=== PATIENT | female | born 1970 | race Asian ===

== ENCOUNTER 2020-04-10 18:44 | Emergency (ER) | payer OTHER ==
[~2020-04-10] VITALS: Ht 162.6 cm; Wt 53.5 kg
[2020-04-10 18:52] VITALS: BP 167/109
--- NOTE | 2020-04-10 18:58 | NUR ---
NADEGE RHODES AT BEDSIDE FOR EVAL.
[2020-04-10] MEDS ORDERED: diphenhydrAMINE HCL 50 MG CAPSULE ONE (19:05)
[2020-04-10] MEDS ORDERED: FAMOTIDINE (20 MG) 20 MG TABLET ONE (19:06)
[2020-04-10] MEDS ORDERED: predniSONE 20 MG TABLET ONE (19:06)
--- NOTE | 2020-04-10 19:24 | NUR ---
Patient discharged to home in stable condition. Written and verbal after care instructions given. Patient verbalizes understanding of instruction.
[2020-04-10] MEDS ORDERED: predniSONE 10 MG TABLET PO ONE (19:30)
[2020-04-10] MEDS ORDERED: FAMOTIDINE (20 MG) 20 MG TABLET PO ONE (19:30)
[2020-04-10] MEDS ORDERED: diphenhydrAMINE HCL 50 MG CAPSULE PO ONE (19:30)
== END 2020-04-10 19:25 | disposition home or self-care (01) ==
LOC: ER 18:46
DX: T78.1XXA Other adverse food reactions, not elsewhere classified, initial encounter (principal); I10 Essential (primary) hypertension; Z98.890 Other specified postprocedural states; X58.XXXA Exposure to other specified factors, initial encounter
CPT/HCPCS: 99284; J7512; Q0163

== ENCOUNTER 2022-01-04 21:24 | Emergency (ER) | payer OTHER ==
[~2022-01-04] VITALS: Ht 162.6 cm; Wt 54.4 kg
--- NOTE | 2022-01-04 22:45 | NUR ---
PATIENT BIBSELF C/O FEVER, COUGH AND SORE THROAT X 3 DAYS. PATIENT IS A/O X 4, RR EVEN AND UNLABORED AND SOB NOTED. PATIENT VSS. PATIENT TAKEN TO ER BED 8. PATIENT CONNECTED TO [facility] MONITOR AND POX. WILL CONTINUE TO MONITOR.
--- NOTE | 2022-01-05 00:19 | NUR ---
COVID AND FLU SWAB COLLECTED SENT TO LAB
[2022-01-05 01:56] VITALS: BP 124/66
[2022-01-05] MEDS ORDERED: BENZ-13 PO (03:42)
--- NOTE | 2022-01-05 03:45 | NUR ---
Patient discharged to home in stable condition. Written and verbal after care instructions given. Patient verbalizes understanding of instruction.
== END 2022-01-05 03:45 | disposition home or self-care (01) ==
LOC: ER 21:30
DX: B34.9 Viral infection, unspecified (principal); Z20.822 Contact with and (suspected) exposure to COVID-19; I10 Essential (primary) hypertension
CPT/HCPCS: 99284; 71045; 87426; 87804; C9803

== ENCOUNTER 2023-07-16 20:06 | Emergency (ER) | payer OTHER ==
[~2023-07-16] VITALS: Ht 162.6 cm; Wt 56.7 kg
[~2023-07-16 20:06] MED LIST: BENZ-13 PO
[2023-07-16 20:46] VITALS: TEMP 97.7
[2023-07-16] MEDS: IV NS 0.9% 1,000 ML BAG IV ONE (21:24)
[2023-07-16 21:26] LABS: BASOPHILS # (AUTO) 0.1 K/uL (0.0-0.2); BASOPHILS % (AUTO) 1.8 % (0.0-2.0); EOSINOPHILS # (AUTO) 0.1 K/uL (0.0-0.7); EOSINOPHILS % (AUTO) 2.1 % (0.0-6.0); HEMATOCRIT 35 % (33-45); HEMOGLOBIN 11.9 g/dL (11.5-14.8); LYMPHOCYTES # (AUTO) 1.7 K/uL (0.8-4.8); LYMPHOCYTES % (AUTO) 23.7 % (20.0-44.0); MEAN CORPUSCULAR HEMOGLOBIN 30 PG (26.0-33.0); MEAN CORPUSCULAR HGB CONC 34 g/dl (31.0-36.0); MEAN CORPUSCULAR VOLUME 89 fL (82-100); MONOCYTES # (AUTO) 0.4 K/uL (0.1-1.30); MONOCYTES % (AUTO) 5.9 % (2.0-12.0); NEUTROPHILS # (AUTO) 4.7 K/uL (1.8-8.9); NEUTROPHILS % (AUTO) 66.5 % (43.0-81.0); PLATELET COUNT (AUTO) 446 K/uL (150-450); RED BLOOD CELL COUNT(AUTO) 3.98 MIL/uL (4.0-5.2); RED CELL DISTRIBUTION WIDTH 11.8 % (11.5-15.0)
[2023-07-16 21:30] LABS: APPEARANCE,URINE Clear (CLEAR); BILIRUBIN,URINE Negative (NEGATIVE); BLOOD, URINE Moderate Ery/uL (NEGATIVE); COLOR,URINE LIGHT YELLOW (YELLOW); KETONES,URINE Negative (NEGATIVE); LEUKOCYTE ESTERASE ,URINE Negative (NEGATIVE); NITRITE, URINE Negative (NEGATIVE); PROTEIN,URINE Negative (NEGATIVE); UGLUCOSE Negative (NEGATIVE); UROBILINOGEN,URINE 0.2 EU/dL (0.2)
[2023-07-16 21:41] LABS: INR 0.99 (0.91-1.10); PARTIAL THROMBOPLASTIN TIME 26.7 SEC (24.3-34.3); PROTHROMBIN TIME 10.2 SECS (9.2-11.1)
[2023-07-16 21:47] LABS: ALBUMIN 3.8 g/dL (3.4-5.0); BILIRUBIN,DIRECT 0.1 mg/dL (0.0-0.2); BILIRUBIN,TOTAL 0.4 mg/dL (0.2-1.0); CALCIUM, SERUM 8.2 mg/dL (8.5-10.1); CREATININE 0.8 mg/dL (0.6-1.3); POTASSIUM 3.4 mmol/L (3.5-5.1); TOTAL PROTEIN, SERUM 7.7 g/dL (6.4-8.2)
[2023-07-16 21:54] LABS: WBC,URINE 0-2 /HPF (0-3)
[2023-07-16 21:55] LABS: ADD URINE CULTURE NO; BACTERIA,URINE Rare /HPF (None Seen); SQUAMOUS EPITHELIAL CELL,UR Rare /HPF (None Seen)
[2023-07-16 22:01] LABS: PREGNANCY TEST URINE QUAL NEGATIVE (NEGATIVE)
[2023-07-17 00:26] VITALS: BP 148/89; O2SAT 99
== END 2023-07-17 00:27 | disposition home or self-care (01) ==
LOC: ER 20:09
DX: N93.9 Abnormal uterine and vaginal bleeding, unspecified (principal); R19.00 Intra-abdominal and pelvic swelling, mass and lump, unspecified site; R22.1 Localized swelling, mass and lump, neck; R10.2 Pelvic and perineal pain; I10 Essential (primary) hypertension; Z88.8 Allergy status to other drugs, medicaments and biological substances
CPT/HCPCS: 99284; 96360; 76856; 85025; 80048; 80076; 84703; 81001; 36415; 85730; 86850; 84702; J7030

== ENCOUNTER 2023-07-26 20:39 | Emergency (ER) | payer OTHER ==
[~2023-07-26] VITALS: Ht 160 cm; Wt 53.5 kg
[2023-07-26] MEDS ORDERED: oxyCODONE/APAP (5/325 MG) 1 UDTAB TABLET ONE (21:48)
[2023-07-26] MEDS ORDERED: ONDANSETRON 4 MG TAB.RAPDIS ONE (21:48)
[2023-07-26] MEDS: oxyCODONE/APAP (5/325 MG) 1 UDTAB TABLET PO ONE (21:53)
[2023-07-26] MEDS: ONDANSETRON 4 MG TAB.RAPDIS SL ONE (21:54)
[2023-07-26 22:03] LABS: BASOPHILS % (AUTO) 0.4 % (0.0-2.0); EOSINOPHILS # (AUTO) 0.1 K/uL (0.0-0.7); HEMATOCRIT 32 % (33-45); HEMOGLOBIN 10.7 g/dL (11.5-14.8); LYMPHOCYTES # (AUTO) 1.2 K/uL (0.8-4.8); LYMPHOCYTES % (AUTO) 15.2 % (20.0-44.0); MEAN CORPUSCULAR HEMOGLOBIN 30 PG (26.0-33.0); MEAN CORPUSCULAR HGB CONC 34 g/dl (31.0-36.0); MEAN CORPUSCULAR VOLUME 90 fL (82-100); MONOCYTES # (AUTO) 0.6 K/uL (0.1-1.30); NEUTROPHILS # (AUTO) 5.9 K/uL (1.8-8.9); NEUTROPHILS % (AUTO) 75.4 % (43.0-81.0); PLATELET COUNT (AUTO) 409 K/uL (150-450); RED BLOOD CELL COUNT(AUTO) 3.56 MIL/uL (4.0-5.2); WHITE BLOOD COUNT (AUTO) 7.9 K/uL (4.3-11.0)
[2023-07-26 22:19] LABS: ALBUMIN 3.2 g/dL (3.4-5.0); BILIRUBIN,DIRECT 0.1 mg/dL (0.0-0.2); BILIRUBIN,TOTAL 0.3 mg/dL (0.2-1.0); CALCIUM, SERUM 7.5 mg/dL (8.5-10.1); POTASSIUM 3.3 mmol/L (3.5-5.1); TOTAL PROTEIN, SERUM 7.4 g/dL (6.4-8.2)
[2023-07-26 22:24] LABS: PARTIAL THROMBOPLASTIN TIME 32.5 SEC (24.3-34.3); PROTHROMBIN TIME 10.6 SECS (9.2-11.1)
[2023-07-26] MEDS ORDERED: OXYC-133 PO (23:02)
[2023-07-26] MEDS ORDERED: ONDA4TAB11 PO (23:02)
[2023-07-26 23:13] VITALS: BP 134/88; TEMP 98; O2SAT 100
== END 2023-07-26 23:17 | disposition home or self-care (01) ==
LOC: ER 20:40
DX: R51.9 Headache, unspecified (principal); I10 Essential (primary) hypertension; N93.8 Other specified abnormal uterine and vaginal bleeding; Z86.69 Personal history of other diseases of the nervous system and sense organs; Z88.8 Allergy status to other drugs, medicaments and biological substances
CPT/HCPCS: 99284; 70450; 85025; 80048; 80076; 36415; 85730; Q0162